=== PATIENT | female | born 1980 | race Two or more races ===

== ENCOUNTER 2016-08-16 06:19 | Emergency (ER) | payer MEDICAID ==
[~2016-08-16] VITALS: Ht 160 cm; Wt 68.5 kg
[~2016-08-16 06:19] MED LIST: NKM; RANITIDINE HCL150 MG PO
[2016-08-16] MEDS ORDERED: Tetracaine 0.5% Opth Soln ONE (06:50)
[2016-08-16] MEDS ORDERED: Tetracaine 0.5% Opth Soln LEFT EYE ONE (07:00)
[2016-08-16] MEDS ORDERED: HYDROCODON-ACE1 EA15 ORAL (07:05)
[2016-08-16] MEDS ORDERED: POLYTRIM OP SOL10 ML OPHTHALM (07:05)
--- NOTE | 2016-08-16 07:05 | Emergency Room Report ---
History of Present Illness General Chief Complaint: Eye Problems Source: Patient Present Illness HPI Is a 36-year-old female presents with chief complaint of left eye pain. She did have a problem with her eyes the last couple weeks. She wakes up and it's "it over. Her said he was allergy prescribe some eyedrop for her. The last couple days she's been having more pain mostly in the left thigh. Now light touch her. It is swollen and felt a foreign body. No fever chills but no nausea no vomiting. No other complaint. Allergies: Coded Allergies: No Known Allergies (Unverified , 02/25/12) Patient History Past Medical History: see triage record, old chart reviewed Past Surgical History: none Pertinent Family History: none Social History: Denies: smoking Last Menstrual Period: RIGHT NOW Now: No : 4 Immunizations: other Reviewed Nursing Documentation: PMH: Agreed, PSxH: Agreed Nursing Documentation-PMH Past Medical History: No Stated History Review of Systems Eye: Reports: blurred vision, discharge, eye pain, tearing ENT: Denies: ear pain, nose congestion, throat swelling Respiratory: Denies: cough, shortness of breath Cardiovascular: Denies: chest pain, palpitations Gastrointestinal: Denies: abdominal pain, diarrhea, nausea, vomiting Musculoskeletal: Denies: back pain, joint pain Skin: Denies: rash Neurological: Denies: headache, numbness Endocrine: Denies: increased thirst, increased urine Hematologic/Lymphatic: Denies: easy bruising All Other Systems: negative except mentioned in HPI Physical Exam Vital Signs Date Time Temp Pulse Resp B/P Pulse Ox O2 Delivery O2 Flow Rate FiO2 08/16/16 06:24 98.2 76 22 136/84 100 Room Air vitals normal Sp02 EP Interpretation: reviewed, normal General Appearance: well appearing, no apparent distress, alert Head: normocephalic, atraumatic Eyes: left eye other - Left eye: The gingiva is injected with mild edema. Sclerae still injection. Extraocular movement intact. Vision intact. Negative Catrachita sign., bilateral eye EOMI, bilateral eye PERRL ENT: hearing grossly normal, normal pharynx Neck: full range of motion, supple, no meningismus Respiratory: chest non-tender, lungs clear, normal breath sounds Cardiovascular #1: regular rate, rhythm, no murmur Gastrointestinal: normal bowel sounds, non tender, no mass, no organomegaly, no bruit, non-distended Musculoskeletal: back normal, gait/station normal, normal range of motion Psychiatric: mood/affect normal Skin: warm/dry Medical Decision Making Diagnostic Impression: Primary Impression: Keratoconjunctivitis of left eye ER Course Patient presents with keratoconjunctivitis. No foreign body. No globe rupture. No orbital cellulitis. We'll discharge home Last Vital Signs Date Time Temp Pulse Resp B/P Pulse Ox O2 Delivery O2 Flow Rate FiO2 08/16/16 06:24 98.2 76 22 136/84 100 Room Air Status: improved Disposition: HOME, SELF-CARE Condition: Stable Scripts Hydrocodone/Acetaminophen 5-325* (HYDROCODONE/ACETAMINOPHEN 5-325*) 1 Each Tablet 1 TAB ORAL Q6H Y for For Pain, #20 TAB 0 Refills Prov: ROXANA THOMAS M.D. 08/16/16 Polymyxin/Trimethoprim (Polytrim Eye Drops) 10 Ml Drops 2 DROP OPHTHALM THREE TIMES A DAY, #1 EA Instill in affected eye for 7 days Prov: ROXANA THOMAS M.D. 08/16/16 Patient Instructions: Bacterial Conjunctivitis, [id number] Additional Instructions: Followup your Dr. in one to 2 days. 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 Return if worse. ROXANA THOMAS M.D. August 16, 2016 07:05
[2016-08-16] MEDS ORDERED: Norco 5mg/325mg tab ORAL ONE (07:15)
[2016-08-16 07:30] VITALS: BP 137/88
== END 2016-08-16 07:34 | disposition home or self-care (01) ==
LOC: EMR 06:59
DX: H16.202 Unspecified keratoconjunctivitis, left eye (principal)
CPT/HCPCS: 99284